=== PATIENT | female | born 1955 | race Caucasian/White ===

== ENCOUNTER 2018-07-27 15:50 | Emergency (ER) | payer MEDICAID, OTHER ==
[~2018-07-27] VITALS: Ht 165.1 cm; Wt 67.1 kg
--- NOTE | 2018-07-27 16:41 | NUR ---
STATES ON ANTIBIOTICS SINCE SUNDAY FOR DIVERTICULITIS (AMOXICILLIN). STILL HAVING ABD PAIN, WORSE TODAY. POOR APPETITE AND DIARRHEA SINCE STARTING ANTIBIOTICS. ABD TENDERNESS AND CRAMPING. RATES PAIN 11/27.
[2018-07-27 17:13] LABS: BASOPHILS # (AUTO) 0.1 X10'3 (0-0.2); BASOPHILS % (AUTO) 0.5 % (0-1); EOSINOPHILS % (AUTO) 0.4 % (0-6); HEMATOCRIT 42.7 % (35.0-45.0); HEMOGLOBIN 14.5 g/dl (12.0-16.0); LYMPHOCYTES # (AUTO) 1.6 X10'3 (1.1-4.8); MEAN CORPUSCULAR HEMOGLOBIN 27.6 PG (27.0-31.0); MEAN CORPUSCULAR VOLUME 81.2 FL (78-98); MEAN PLATELET VOLUME 9.3 FL (7.4-10.4); MONOCYTES # (AUTO) 0.6 X10'3 (0-0.9); NEUTROPHILS # (AUTO) 7.4 X10'3 (1.8-7.7); NEUTROPHILS % (AUTO) 76.1 % (42-75); PLATELET COUNT 244 X10'3 (140-440); RED BLOOD COUNT 5.26 X10'6 (4.20-5.60); RED CELL DISTRIBUTION WIDTH 12.9 % (11.5-14.5); WHITE BLOOD COUNT 9.7 X10'3 (4.5-11.0)
[2018-07-27 17:14] LABS: INR 1.1 INR; PROTHROMBIN TIME 10.8 SECONDS (9.0-12.0)
[2018-07-27 17:18] LABS: ALANINE AMINOTRANSFERASE 33 U/L (12-78); ALBUMIN 4.3 G/DL (3.4-5.0); ALBUMIN/GLOBULIN RATIO 1.2 (1.1-1.5); ALKALINE PHOSPHATASE 62 IU/L (46-116); AMYLASE 26 U/L (25-115); ANION GAP 11 (8-16); ASPARTATE AMINO TRANSFERASE 24 U/L (10-37); BILIRUBIN,TOTAL 0.3 MG/DL (0.1-1.0); BLOOD UREA NITROGEN 15 MG/DL (7-18); CALCIUM 9.7 MG/DL (8.5-10.1); CHLORIDE 102 MMOL/L (99-107); CREATININE 0.79 MG/DL (0.40-0.90); GLUCOSE 143 MG/DL (70-104); LIPASE 118 U/L (73-393); POTASSIUM 3.5 MMOL/L (3.5-5.1); SODIUM 138 MMOL/L (135-145); eGFR 74 ML/MIN
[2018-07-27] MEDS ORDERED: normal saline 1000ML IV soln IVB ONE (17:25)
[2018-07-27] MEDS ORDERED: pantoprazole 40 MG vial IV ONE (17:25)
[2018-07-27] MEDS ORDERED: ondansetron/PF 4mg/2ml inj IV ONE (17:25)
[2018-07-27] MEDS ORDERED: morphine 4 MG/ML inj SYRINge IV ONE (17:25)
[2018-07-27 17:30] LABS: URINE HCG NEGATIVE (NEG)
--- NOTE | 2018-07-27 17:34 | NUR ---
HEMOCCULT TEST PERFORMED PER PROVIDER. RESULTS NEGATIVE.
[2018-07-27 17:35] LABS: CLARITY,URINE SLIGHTLY CLOUDY (Clear); COLOR,URINE YELLOW (Yellow); GLUCOSE, URINE NEGATIVE (Neg); KETONES,URINE 15 mg/dl (Neg); LEUKOCYTE ESTERASE ,URINE TRACE (Neg); NITRITES, URINE NEGATIVE (Neg); OCCULT BLOOD,URINE LARGE (Neg); PH,URINE 5.5 (4.8-8.0); PROTEIN,URINE 30 mg/dl (Neg); UROBILINOGEN,URINE 0.2 E.U/dL (0.2-1.0)
[2018-07-27 17:37] LABS: UA COLLECTION TYPE CLN CATCH MIDSTREAM
[2018-07-27 17:51] LABS: BACTERIA,URINE 1+ /HPF (Neg); MUCUS STRANDS MANY /LPF (Neg); SQUAMOUS EPITHELIAL CELL,UR MANY /LPF (FEW); WBC,URINE 0-4 /HPF (0-4)
--- NOTE | 2018-07-27 17:54 | NUR ---
urine rejected for culture per lab-Shruthi SABA made aware.
[2018-07-27] MEDS ORDERED: iohexol 300mg/ml 100ml inj. ONE (17:58)
[2018-07-27 18:01] LABS: OCCULT BLOOD STOOL NEGATIVE (Neg)
[2018-07-27] MEDS ORDERED: ONDA4TAB6 PO (20:01)
[2018-07-27] MEDS ORDERED: HYDR-4353 PO (20:01)
[2018-07-27 20:33] VITALS: BP 160/90
== END 2018-07-27 20:34 | disposition home or self-care (01) ==
LOC: ER 15:50
DX: R10.32 Left lower quadrant pain (principal); R10.12 Left upper quadrant pain; R11.10 Vomiting, unspecified; F12.90 Cannabis use, unspecified, uncomplicated; Z88.0 Allergy status to penicillin; Z79.899 Other long term (current) drug therapy
CPT/HCPCS: 36415; 74177; 80053; 81001; 81025; 82150; 82272; 83690; 85025; 85610; 96361; 96374; 96375; 99284; C9113; J2270; J2405; J7030; Q9967